=== PATIENT | male | born 1975 ===

== ENCOUNTER 2018-06-04 08:49 | Outpatient (CLI) | payer OTHER | END 2018-06-04 08:50 | disposition home or self-care (01) | LOC: C.USIC 08:50 | DX: R94.6 Abnormal results of thyroid function studies (principal) ==

== ENCOUNTER 2018-09-25 06:42 | Emergency (ER) | payer OTHER ==
[2018-09-25] MEDS ORDERED: Sodium Chloride 0.9% 1,000 ML IV ONE (07:48)
[2018-09-25 08:22] LABS: BASO % 0.4 % (0.0-2.0); EOS # 0.2 K/uL (0.0-0.7); EOS % 2.6 % (0.0-4.0); HEMOGLOBIN 16.1 g/dL (12.0-18.0); LYMPH # 2.6 K/uL (1.0-4.3); LYMPH % 43.1 % (20.0-40.0); MEAN CELL VOLUME 90.1 fL (80.0-94.0); MEAN CORPUSCULAR HEMOGLOBIN 31.1 pg (27.0-31.0); MEAN CORPUSCULAR HGB CONC 34.6 g/dL (33.0-37.0); MEAN PLATELET VOLUME 9.5 fL (7.2-11.7); MONO # 0.6 K/uL (0.0-0.8); MONO % 9.1 % (0.0-10.0); NEUT # 2.7 K/uL (1.8-7.0); NEUT % 44.8 % (50.0-75.0); NRBC % 0.1 % (0.0-2.0); RBC 5.17 Mil/uL (4.40-5.90); RED CELL DISTRIBUTION WIDTH 12.7 % (11.5-14.5); WHITE BLOOD COUNT 6.1 K/uL (4.8-10.8)
[2018-09-25 08:26] LABS: URINE BACTERIA RARE (<OCC); URINE BILIRUBIN NEGATIVE (NEGATIVE); URINE BLOOD NEGATIVE (NEGATIVE); URINE CLARITY Hazy (Clear); URINE COLOR Yellow (YELLOW); URINE GLUCOSE (UA) NORMAL (Normal); URINE LEUKOCYTE ESTERASE NEG Leu/uL (Negative); URINE PROTEIN 2+ mg/dL (NEGATIVE); URINE UROBILINOGEN NORMAL mg/dL (0.2-1.0)
[2018-09-25 08:37] LABS: BLOOD UREA NITROGEN 12 mg/dL (9-20); CALCIUM 9.7 mg/dl (8.6-10.4); GFR NON-AFRICAN AMERICAN > 60
[2018-09-25 08:38] LABS: ALB/GLOB RATIO 1.4 (1.0-2.1); ALT/SGPT 24 U/L (21-72); AST/SGOT 48 U/L (17-59)
--- NOTE | 2018-09-25 08:42 | CT ---
Date of service: 09/25/2018 PROCEDURE: CT HEAD WITHOUT CONTRAST. HISTORY: seizure COMPARISON: Not available TECHNIQUE: Axial computed tomography images were obtained through the head/brain without intravenous contrast. Radiation dose: Total exam DLP = 997.91 mGy-cm. This CT exam was performed using one or more of the following dose reduction techniques: Automated exposure control, adjustment of the mA and/or kV according to patient size, and/or use of iterative reconstruction technique. FINDINGS: HEMORRHAGE: No intracranial hemorrhage. BRAIN: No mass effect or edema. No atrophy or chronic microvascular ischemic changes. VENTRICLES: Unremarkable. No hydrocephalus. CALVARIUM: Unremarkable. PARANASAL SINUSES: Unremarkable as visualized. No significant inflammatory changes. MASTOID AIR CELLS: Unremarkable as visualized. No inflammatory changes. OTHER FINDINGS: None. IMPRESSION: Normal CT of the Head. No intracranial mass, hemorrhage or evidence of acute infarct.
[2018-09-25 08:43] LABS: BARBITURATES, UR NEGATIVE (NEGATIVE); BENZODIAZEPINES, UR NEGATIVE (NEGATIVE); OPIATES, UR NEGATIVE (NEGATIVE); PHENCYCLIDINE, UR NEGATIVE (NEGATIVE)
--- NOTE | 2018-09-25 10:36 | RAD ---
Date of service: 09/25/2018 PROCEDURE: CHEST RADIOGRAPH, 1 VIEW HISTORY: Seizure COMPARISON: None available. FINDINGS: LUNGS: The lungs are well inflated and clear. PLEURA: No pneumothorax or pleural effusion. CARDIOVASCULAR: The heart is normal in size. No aortic atherosclerotic calcifications present. OSSEOUS STRUCTURES: Within normal limits for the patient's age. VISUALIZED UPPER ABDOMEN: Normal. OTHER FINDINGS: None. IMPRESSION: No active pulmonary disease.
[2018-09-25] MEDS ORDERED: levETIRAcetam 1,000 MG in Sodium Chloride 0.9% 100 ML IVPB STA (10:41)
--- NOTE | 2018-09-25 11:16 | C.PDOC ---
History Of Present Illness 43 y/o male,w/PMhx of seizures, brought to ER by BLS for evaluation of witnessed seizure.Daughter states that he had a seizure which lasted about 1 minute. Daughter reports that he fell into the bathtub and he hit his head. Daughter notes that his neurologist, Dr.Musaid Valiente recently changed his medications from Dilantin to Keppra in July 2018. She states that he is taking Keppra 500 mg BID and he is compliant with his medications. She notes that he is compliant with his medications. She reports that he had his last seizure 5-6 years ago.Denies having fever,chills, nausea,vomiting, and bowel/bladder incontinence. Time Seen by Provider: 09/25/18 07:23 Chief Complaint (Nursing): Seizure History Per: Patient, Family (daughter) History/Exam Limitations: no limitations Number Of Seizures: One Severity: Moderate Past Medical History Reviewed: Historical Data, Nursing Documentation, Vital Signs Vital Signs: Last Vital Signs Temp 98.7 F 09/25/18 06:49 Pulse 62 09/25/18 10:46 Resp 16 09/25/18 10:46 BP 119/82 09/25/18 10:46 Pulse Ox 98 09/25/18 10:46 Primary Care Provider: Clinic,Med Surg - Medical History PMH: Seizures Denies: HIV, Chronic Kidney Disease Other Surgeries: Hx of surgeries - [facility] Procedures INFLUENZA VACCINATION (06/17/14) Family History: States: No Known Family Hx - Social History Hx Alcohol Use: No Hx Substance Use: No - Immunization History Hx Tetanus Toxoid Vaccination: No Hx Influenza Vaccination: No Hx Pneumococcal Vaccination: No Review Of Systems Except As Marked, All Systems Reviewed And Found Negative. Constitutional: Negative for: Fever, Chills Cardiovascular: Negative for: Chest Pain Respiratory: Negative for: Shortness of Breath Gastrointestinal: Negative for: Nausea, Vomiting, Abdominal Pain Neurological: Positive for: Seizures Physical Exam - Physical Exam Appears: Non-toxic, No Acute Distress Skin: Normal Color, Warm, Dry Head: Atraumatic, Normacephalic Eye(s): bilateral: Normal Inspection Nose: Normal Oral Mucosa: Moist Tongue: Bite (tongue bite troncoso to right side of tongue) Neck: Supple Chest: Symmetrical Cardiovascular: Rhythm Regular Respiratory: Normal Breath Sounds, No Rales, No Rhonchi, No Wheezing Gastrointestinal/Abdominal: Normal Exam, Soft, No Tenderness, No Guarding, No Rebound Extremity: Normal ROM Neurological/Psych: Oriented x3, Normal Speech, Normal Motor, Normal Sensation ED Course And Treatment - Laboratory Results Result Diagrams: 09/25/18 07:56 09/25/18 07:56 Lab Results: Total Bilirubin 0.9 mg/dL (0.2-1.3) 09/25/18 07:56 AST 48 U/L (17-59) 09/25/18 07:56 ALT 24 U/L (21-72) 09/25/18 07:56 Alkaline Phosphatase 100 U/L (38-126) 09/25/18 07:56 Total Protein 8.5 g/dL (6.3-8.3) H 09/25/18 07:56 Albumin 5.0 g/dL (3.5-5.0) 09/25/18 07:56 Globulin 3.5 gm/dL (2.2-3.9) 09/25/18 07:56 Albumin/Globulin Ratio 1.4 (1.0-2.1) 09/25/18 07:56 Urine Color Yellow (YELLOW) 09/25/18 08:10 Urine Clarity Hazy (Clear) 09/25/18 08:10 Urine pH 5.0 (5.0-8.0) 09/25/18 08:10 Ur Specific [place] 1.024 (1.003-1.030) 09/25/18 08:10 Urine Protein 2+ mg/dL (NEGATIVE) H 09/25/18 08:10 Urine Glucose (UA) Normal mg/dL (Normal) 09/25/18 08:10 Urine Ketones Negative mg/dL (NEGATIVE) 09/25/18 08:10 Urine Blood Negative (NEGATIVE) 09/25/18 08:10 Urine Nitrate Negative (NEGATIVE) 09/25/18 08:10 Urine Bilirubin Negative (NEGATIVE) 09/25/18 08:10 Urine Urobilinogen Normal mg/dL (0.2-1.0) 09/25/18 08:10 Ur Leukocyte Esterase Neg Penny/uL (Negative) 09/25/18 08:10 Urine WBC (Auto) 3 /hpf (0-5) 09/25/18 08:10 Urine RBC (Auto) 1 /hpf (0-3) 09/25/18 08:10 Urine Bacteria Rare (<OCC) 09/25/18 08:10 ECG: Interpreted By Me ECG Rhythm: Sinus Bradycardia Rate From EC O2 Sat by Pulse Oximetry: 98 (RA) Pulse Ox Interpretation: Normal - Radiology CXR: Interpreted by Me, Viewed By Me CXR Interpretation: Yes: No Acute Disease - CT Scan/US CT-Head Other Rad Studies (CT/US): Read By Radiologist, Radiology Report Reviewed CT/US Interpretation: Date of service: 09/25/2018. PROCEDURE: CT HEAD WITHOUT CONTRAST. HISTORY: seizure. COMPARISON: Not available. TECHNIQUE: Axial computed tomography images were obtained through the head/brain without intravenous contrast. Radiation dose: Total exam DLP = 997.91 mGy-cm. This CT exam was performed using one or more of the following dose reduction techniques: Automated exposure control, adjustment of the mA and/or kV according to patient size, and/or use of iterative reconstruction technique. FINDINGS: HEMORRHAGE: No intracranial hemorrhage. BRAIN: No mass effect or edema. No atrophy or chronic microvascular ischemic changes. VENTRICLES: Unremarkable. No hydrocephalus. CALVARIUM: Unremarkable. PARANASAL SINUSES: Unremarkable as visualized. No significant inflammatory changes. MASTOID AIR CELLS: Unremarkable as visualized. No inflammatory changes. OTHER FINDINGS: None. IMPRESSION: Normal CT of the Head. No intracranial mass, hemorrhage or evidence of acute infarct. Medical Decision Making Medical Decision Making: Plan: --Labs --UA --CXR --CT-Head --Keppra IV --IV Fluids Updates: Dr.Musaid Valiente's office was contacted. Moisture Meter Reader stated that is away on vacation. 10:35 Case discussed with ,neurologist injection molding machine setter. advised for patient to be treated with Keppra in ER and increase dosage to Keppra 750 mg BID for home. Disposition Counseled Patient/Family Regarding: Studies Performed, Diagnosis, Need For Followup - Disposition Referrals: Talha Hoyt MD [Staff Provider] - [facility] at [facility] [Outside] Disposition: HOME/ ROUTINE Disposition Time: 12:07 Condition: STABLE Additional Instructions: DIXON LYNCH, thank you for letting us take care of you today. Your provider was Sofia Atwood MD and you were treated for SEIZURE. The emergency medical care you received today was directed at your acute symptoms. If you were prescribed any medication, please fill it and take as directed. It may take several days for your symptoms to resolve. Return to the Emergency Department if your symptoms worsen, do not improve, or if you have any other problems. Please contact your doctor or call one of the physicians/clinics you have been referred to that are listed on the Patient Visit Information form that is included in your discharge packet. Bring any paperwork you were given at discharge with you along with any medications you are taking to your follow up visit. Our treatment cannot replace ongoing medical care by a primary care provi sheila outside of the emergency department. Thank you for allowing the [facility] team to be part of your care today. Deje de michael Keppra 500 mg dos veces al ness y comience a michael jennings nueva r eceta de 750 mg dos veces al ness citlaly lo recomiende nuestro neurologo Prescriptions: Levetiracetam [Keppra] 750 mg PO BID #60 tablet Instructions: Seizures, Adult (DC) Forms: Gen Discharge Inst Uzbek, AWAK (Uzbek) Print Language: KAZAKH - POA Present On Arrival: None - Clinical Impression Clinical Impression: Seizure, Seizure disorder - Scribe Statement The provider has reviewed the documentation as recorded by the Augustineibflor Gregg Provider Attestation: All medical record entries made by the Scribe were at my direction and personally dictated by me. I have reviewed the chart and agree that the record accurately reflects my personal performance of the history, physical exam, medical decision making, and the department course for this patient. I have also personally directed, reviewed, and agree with the discharge instructions and disposition.
[2018-09-25 12:02] VITALS: BP 112/70; PULSE 60; RESP 20; TEMP 98
[2018-09-25 12:10] VITALS: O2SAT 98
== END 2018-09-25 12:47 | disposition home or self-care (01) ==
LOC: C.ER 06:42
DX: G40.909 Epilepsy, unspecified, not intractable, without status epilepticus (principal)
CPT/HCPCS: 70450; 71045; 80053; 80320; 80324; 80345; 80346; 80349; 80353; 80358; 80361; 81001; 82948; 83992; 85025; 93005; 96365; 99285; J1953; J7030

== ENCOUNTER 2018-10-14 07:22 | Emergency (ER) | payer OTHER ==
[2018-10-14 07:33] VITALS: TEMP 98.4
--- NOTE | 2018-10-14 08:04 | C.PDOC ---
History Of Present Illness 43 year old male with a history of seizures, on Keppra, presents to the emergency department for evaluation of reportedly having a 1 minute seizure with full tonic-clonic activity with tongue biting. Patient states that he was seen 3 weeks ago for similar episode, and had a negative head CT at the time. Patient denies any complaints at present time, states he has a neurologist appointment coming up in one week. Patient states that he is compliant with his meds. Time Seen by Provider: 10/14/18 07:40 Chief Complaint (Nursing): Seizure History Per: Patient History/Exam Limitations: no limitations Recent Seizure Activity Began: Just Before Arrival Number Of Seizures: One Length Of Seizures (Duration): Minutes (1) Associated Symptoms: Bit Tongue Past Medical History Reviewed: Historical Data, Nursing Documentation, Vital Signs Vital Signs: Last Vital Signs Temp 98.4 F 10/14/18 07:30 Pulse 85 10/14/18 07:30 Resp 18 10/14/18 07:30 BP 122/86 10/14/18 07:30 Pulse Ox 97 10/14/18 07:30 Primary Care Provider: Tresa Corrigan - Medical History PMH: Seizures Denies: HIV, Chronic Kidney Disease Surgical History: No Surg Hx - [facility] Procedures INFLUENZA VACCINATION (06/17/14) Family History: States: No Known Family Hx - Social History Hx Alcohol Use: No Hx Substance Use: No - Immunization History Hx Tetanus Toxoid Vaccination: No Hx Influenza Vaccination: No Hx Pneumococcal Vaccination: No Review Of Systems Except As Marked, All Systems Reviewed And Found Negative. Constitutional: Negative for: Fever, Chills, Weakness Cardiovascular: Negative for: Chest Pain Respiratory: Negative for: Cough, Shortness of Breath Gastrointestinal: Negative for: Nausea, Vomiting, Abdominal Pain, Diarrhea Genitourinary: Negative for: Dysuria Musculoskeletal: Negative for: Neck Pain Neurological: Negative for: Weakness, Numbness Physical Exam - Physical Exam Appears: Non-toxic, No Acute Distress Skin: Warm, Dry Head: Atraumatic, Normacephalic Eye(s): bilateral: Normal Inspection, PERRL, EOMI Nose: Normal Oral Mucosa: Moist Tongue: Laceration (minimal laceration to the right side of the tongue) Lips: Normal Appearing Neck: Normal, Supple Chest: Symmetrical, No Tenderness Cardiovascular: Rhythm Regular, No Murmur Respiratory: Normal Breath Sounds, No Rales, No Rhonchi, No Wheezing Gastrointestinal/Abdominal: Soft, No Tenderness, No Guarding, No Rebound Extremity: Normal ROM Neurological/Psych: Oriented x3, Normal Speech, Normal Cognition ED Course And Treatment - Laboratory Results Result Diagrams: 10/14/18 08:27 10/14/18 08:27 Interpretation Of ECG: Normal sinus rhythm at 64bpm, no ST/T wave changes. O2 Sat by Pulse Oximetry: 97 (RA) Pulse Ox Interpretation: Normal Medical Decision Making Medical Decision Making: breakthrough seizure. Plan: EKG Chemistry Bloodwork Glucose POC Urinalysis known seizure d/o with break through seizure. neuor intact in er . neg head ct 3 weeks ago. advise outpt fu for dicussion of medication regiemin. no seizure actiuvity during ed course. Disposition - Disposition Referrals: [facility] at [facility] [Outside] [facility] [Outside] Abdullahi Diaz MD [Staff Provider] - Disposition: HOME/ ROUTINE Disposition Time: 09:02 Condition: STABLE Additional Instructions: please see specilaist. return to any er with worsening. Instructions: Seizures, Adult (DC) Forms: [employer] (Bruneian) - Clinical Impression Clinical Impression: Seizure - Scribe Statement The provider has reviewed the documentation as recorded by the Scribe (Gaudencio Givens) Provider Attestation: All medical record entries made by the Scribe were at my direction and personally dictated by me. I have reviewed the chart and agree that the record accurately reflects my personal performance of the history, physical exam, medical decision making, and the department course for this patient. I have also personally directed, reviewed, and agree with the discharge instructions and disposition.
[2018-10-14 08:40] LABS: BASO % 0.4 % (0.0-2.0); EOS # 0.1 K/uL (0.0-0.7); EOS % 1.7 % (0.0-4.0); HEMOGLOBIN 15.5 g/dL (12.0-18.0); LYMPH # 1.2 K/uL (1.0-4.3); LYMPH % 27.6 % (20.0-40.0); MEAN CELL VOLUME 89.3 fL (80.0-94.0); MEAN CORPUSCULAR HEMOGLOBIN 31.5 pg (27.0-31.0); MEAN CORPUSCULAR HGB CONC 35.3 g/dL (33.0-37.0); MEAN PLATELET VOLUME 9.7 fL (7.2-11.7); MONO # 0.4 K/uL (0.0-0.8); MONO % 8.7 % (0.0-10.0); NEUT # 2.8 K/uL (1.8-7.0); NEUT % 61.6 % (50.0-75.0); NRBC % 0.1 % (0.0-2.0); RBC 4.93 Mil/uL (4.40-5.90); RED CELL DISTRIBUTION WIDTH 12.8 % (11.5-14.5); WHITE BLOOD COUNT 4.5 K/uL (4.8-10.8)
[2018-10-14 08:46] LABS: URINE BILIRUBIN NEGATIVE (NEGATIVE); URINE BLOOD NEGATIVE (NEGATIVE); URINE CLARITY Clear (Clear); URINE COLOR Yellow (YELLOW); URINE GLUCOSE (UA) NORMAL (Normal); URINE LEUKOCYTE ESTERASE NEG Leu/uL (Negative); URINE PROTEIN NEGATIVE (NEGATIVE); URINE UROBILINOGEN NORMAL mg/dL (0.2-1.0)
[2018-10-14 08:47] LABS: PARTIAL THROMBOPLASTIN TIME 25.3 SECONDS (21-34); PROTHROMBIN TIME 11.1 SECONDS (9.7-12.2)
[2018-10-14 08:56] LABS: ALB/GLOB RATIO 1.4 (1.0-2.1); ALBUMIN 4.6 g/dL (3.5-5.0); ALT/SGPT 40 U/L (21-72); AST/SGOT 36 U/L (17-59); BLOOD UREA NITROGEN 10 mg/dL (9-20); CALCIUM 9.6 mg/dl (8.6-10.4); GFR NON-AFRICAN AMERICAN > 60
[2018-10-14 09:19] VITALS: BP 107/57; PULSE 64; RESP 13; O2SAT 99
--- NOTE | 2018-10-15 20:43 | CARD ---
APPROVED REPORT Date of service: 10/14/2018 EKG Measurement Heart [id number] <Conclusion> Normal sinus rhythm Normal ECG
== END 2018-10-14 09:18 | disposition home or self-care (01) ==
LOC: C.ER 07:22
DX: R56.9 Unspecified convulsions (principal)

== ENCOUNTER 2018-10-14 22:46 | Emergency (ER) | payer SELFPAY ==
--- NOTE | 2018-10-14 23:47 | C.PDOC ---
History Of Present Illness 43 year old male withy PMHx seizures presents to the ED for evaluation. Patient was seen this morning for seizure activity, discharged home after blood work came back unremarkable. Patient states tonight while at home he had a headache that usually happens before he gets a seizure. Patient did not have a seizure tonight. Patient reports being compliant with his Keppra 750 mg. Patient has a follow up with his Neurologist Dr. Valiente on 10/24/18. Patient denies fever, chills, headache, visual changes, dizziness, nausea, vomit, bowel incontinence, weakness, numbness. Time Seen by Provider: 10/14/18 23:19 Chief Complaint (Nursing): Headache History Per: Patient History/Exam Limitations: no limitations Onset/Duration Of Symptoms: Hrs Current Symptoms Are (Timing): Better Quality: "Pain" Recent travel outside of the [place]: No Additional History Per: Patient Past Medical History Reviewed: Historical Data, Nursing Documentation, Vital Signs Vital Signs: Last Vital Signs Temp 97.9 F 10/14/18 22:58 Pulse 59 L 10/14/18 22:58 Resp 18 10/14/18 22:58 BP 127/77 10/14/18 22:58 Pulse Ox 100 10/14/18 22:58 Primary Care Provider: Eusebia Yoo - Medical History PMH: Seizures Denies: HIV, Chronic Kidney Disease Surgical History: No Surg Hx - [facility] Procedures INFLUENZA VACCINATION (06/17/14) Family History: States: Unknown Family Hx - Social History Hx Alcohol Use: No Hx Substance Use: No - Immunization History Hx Tetanus Toxoid Vaccination: No Hx Influenza Vaccination: No Hx Pneumococcal Vaccination: No Review Of Systems Constitutional: Negative for: Fever, Chills Eyes: Negative for: Vision Change Cardiovascular: Negative for: Chest Pain Respiratory: Negative for: Shortness of Breath Gastrointestinal: Negative for: Nausea, Vomiting, Abdominal Pain Skin: Negative for: Rash Neurological: Negative for: Weakness, Numbness, Headache, Dizziness Physical Exam - Physical Exam Appears: Non-toxic, No Acute Distress Skin: Normal Color, Warm, Dry Head: Atraumatic, Normacephalic Eye(s): bilateral: Normal Inspection, PERRL, EOMI Oral Mucosa: Moist Neck: Normal ROM, Supple Chest: Symmetrical Cardiovascular: Rhythm Regular Respiratory: Normal Breath Sounds, No Rales, No Rhonchi, No Wheezing Gastrointestinal/Abdominal: Soft, No Tenderness, No Guarding, No Rebound Extremity: Normal ROM, No Tenderness, No Swelling Neurological/Psych: Oriented x3, Normal Speech, Normal Cognition Gait: Steady ED Course And Treatment O2 Sat by Pulse Oximetry: 100 (ON RA) Pulse Ox Interpretation: Normal Medical Decision Making Medical Decision Making: Patient was reassured, advised to continue taking his keppra as prescribed until he follow up with Dr. Brian for further evaluation. Patient understands and agrees with plan. Disposition Counseled Patient/Family Regarding: Diagnosis, Need For Followup - Disposition Disposition: HOME/ ROUTINE Disposition Time: 23:45 Condition: STABLE Instructions: Headache, Adult (DC) Forms: [employer] (Faroese), Gen Discharge Inst Faroese Print Language: BAHAMIAN - Clinical Impression Clinical Impression: Headache - Scribe Statement The provider has reviewed the documentation as recorded by the Scribe Johnie Mujica All medical record entries made by the Scribe were at my direction and personally dictated by me. I have reviewed the chart and agree that the record accurately reflects my personal performance of the history, physical exam, medical decision making, and the department course for this patient. I have also personally directed, reviewed, and agree with the discharge instructions and disposition.
[2018-10-15 00:36] VITALS: BP 111/72; PULSE 60; RESP 16; TEMP 98; O2SAT 96
== END 2018-10-15 00:36 | disposition home or self-care (01) ==
LOC: C.ER 22:46
DX: R51 Headache (principal)